=== PATIENT | female | born 1985 | race Caucasian/White ===

== ENCOUNTER → 2016-06-30 | Outpatient (REF) | payer OTHER ==
[~2016-06-30] MED LIST: ACET50TA GT; ACET50TA PO; ACET50TAOT PO; BENA25TA4 PO; DOCU10ELUD PO; IBUP80TA PO; KEFL500C7 PO; NORCOTAB PO; PRENTAB74 PO; SENN1TAB2 PO
== END ==
LOC: M LAB REF 13:14
PROVIDERS: ATTEND Advanced Practice Midwife
DX: Z34.81 Encounter for supervision of other normal pregnancy, first trimester (principal)

== ENCOUNTER → 2016-09-28 | Outpatient (CLI) | payer OTHER ==
[2016-09-28 13:54] LABS: MEAN CORPUSCULAR HEMOGLOBIN 31.4 pg (27.0-33.0); MEAN CORPUSCULAR HGB CONC 33.7 g/dl (32.0-36.5); MEAN CORPUSCULAR VOLUME 93.1 fl (80.0-96.0); RED CELL DISTRIBUTION WIDTH 13.5 % (11.5-14.5); WHITE BLOOD COUNT 8.2 K/mm3 (4.0-10.0)
== END ==
LOC: M LAB 11:51
PROVIDERS: ATTEND Advanced Practice Midwife
DX: Z34.82 Encounter for supervision of other normal pregnancy, second trimester (principal)

== ENCOUNTER → 2016-12-06 | Outpatient (REF) | payer OTHER | LOC: M LAB REF 12:53 | PROVIDERS: ATTEND Obstetrics & Gynecology | DX: Z34.83 Encounter for supervision of other normal pregnancy, third trimester (principal) ==

== ENCOUNTER 2016-12-29 17:21 | Inpatient (IN) | payer OTHER ==
[~2016-12-29] VITALS: Ht 167.6 cm; Wt 105.0 kg
[~2016-12-29 17:21] MED LIST changes: +KEFL500C17 PO; -KEFL500C7 PO
[2016-12-29] MEDS ORDERED: PRENTAB9 PO (17:31)
[2016-12-29] MEDS ORDERED: LR 500 ML IV SCH (18:00)
[2016-12-29 18:27] LABS: MEAN CORPUSCULAR HEMOGLOBIN 32.6 pg (27.0-33.0); MEAN CORPUSCULAR HGB CONC 35.7 g/dl (32.0-36.5); MEAN CORPUSCULAR VOLUME 91.1 fl (80.0-96.0); RED CELL DISTRIBUTION WIDTH 14.1 % (11.5-14.5); WHITE BLOOD COUNT 5.9 K/mm3 (4.0-10.0)
--- NOTE | 2016-12-29 18:51 | HPEPDOC ---
Obstetrical History & Physical General Date of Admission Dec 29, 2016 at 17:21 Primary Care Physician: DARREL JACK CNM History of Present Illness Patient is a 31-year-old female who is a 001 with an VARSHA of 01/05/2017 who is 39 weeks gestation based off of her first trimester ultrasound and consistent with her LMP. Patient initiated care in her first trimester at [email or web address]. Her care has been uncomplicated. She presents to labor and delivery today after being seen in the office. She was found to be in active labor was sent from the office to L&D. Patient reports contractions and active movement. She denies vaginal bleeding or leaking of fluid. Chief Complaint: Contractions, term, Active Labor Information Provided By: Patient Age: 31 : 2 Term: 1 Pre-term: 0 Livin Care Care: Good Care Number of Visits: 13 Dating Final EDC: Jan 05, 2017 Final EDC by: 1st trimester (US) LMP: Jun 09, 2016 EGA at Admission: 39 Antepartum Course Diagnos(e)s Preeclampsia: noted today in hospital by evidence of two elevated BP's in hospital, uric acid of 6.3, random protein/creatinine ratio of 0.45, and 2+ urine protein dip. Height (inches): 66 Pre- weight (lbs.): 196 Admission Weight (lbs.): 241 Change in Weight (lbs.): 245 Past Medical History Past Obstetrical History : Past Obstetrical History: Multigravida Type of Delivery: Spontaneous Vaginal Del. (August 2012 at 40 weeks gestation ) Sex of Infant: Female (weighing 8 lbs. 1 oz.) Complications: No PROTOHISTORIAN History: Abnormal Pap, Human papillomavirus(HPV) Past Medical History Medical History Varicella as a child. Surgical History: Appendectomy Family History Significant Family History: Cancer (father with lung cancer) Social History Social history Patient is . Her highest level of education is a bachelor's degree. Marital Status: Family situation: Spouse/partner home Psychosocial History: No pertinent psych hx * Smoker: non-smoker Alcohol: Denies Drugs: denies Abuse Violence Screening Have you been hit/kicked/slapp: No Have you been sexually assault: No Imunizations Tdap status: current Allergies Coded Allergies: No Known Drug Allergy (Verified Allergy, Unknown, 02/02/16) Medications Scheduled Multivitamins/ ( 27-0.8 mg) 1 Tab Tab, 1 TAB PO DAILY Physical Examination Physical Examination GENERAL: Alert and oriented times three. BREAST: . ABDOMEN: Gravid and non-tender to touch. FETUS: Is vertex (VTX) by sterile vaginal examination (SVE), fetus is vertex ( VTX) by Neftali. EFW via Neftali's is 9 lbs. HEART RATE: Regular rate and rhythm. LUNGS: Clear to auscultation (CTA). EXTREMITIES: 1+ pitting edema bilateral lower extremities. No clonus. Laboratory Data [facility] Laboratory Tests 2 12/29/16 18:13: 12/29/16 18:14: Urine Appearance HAZY, Urine Color YELLOW, Urine pH 6.0, Urine Specific [place] 1.016, Urine Protein 2+H, Urine Glucose (UA) NEGATIVE, Urine Ketones NEGATIVE, Urine Urobilinogen 0.2, Urine Bilirubin NEGATIVE, Urine Leukocyte Esterase NEGATIVE, Urine Blood NEGATIVE, Urine Nitrite NEGATIVE, Urine WBC (Auto) 3, Urine RBC (Auto) 2, Urine Hyaline Casts (Auto) 0, Urine Bacteria (Auto) NEGATIVE , Urine Squamous Epithelial Cells 7, Urine Mucus (Auto) SMALL, Urine Sperm (Auto ) 12/29/16 18:24: Serology Scanned Report Hepatitis B Testing CBC/BMP Laboratory Tests 12/29/16 18:13 Red Blood Count 3.38 L, Mean Corpuscular Volume 91.1, Mean Corpuscular Hemoglobin 32.6, Mean Corpuscular Hemoglobin Concent 35.7, Red Cell Distribution Width 14.1 Urine Culture: No Growth Pertinent Laboratoy Data Blood Type: O+ RBC Antibody Screen: Negative HIV: Negative Hepatitis B: Negative Hepatitis C: Negative Rapid Plasma Reagin: Nonreactive Rubella: Immune Chlamydia/Gonorrhea: Negative Group B Streptococcus: Negative Quad Screen Test: Declined Glucose Tolerance Test: 99 Anatomy Ultrasound Ultrasound Date: Dec 14, 2016 Normal Anatomy: Yes Placenta Previa: No Estimated Weight (grams): 3806 Vaginal Examination Dilation: 4 cm Effacement: Other (90%) Presentation: Cephalic presentation Position: Vertex (occiput) Assessment Heart Rate (FHR): 135 Variability: Moderate Accelerations: Positive Decelerations: None Tocometer Contractions: Yes Frequency: other (5 to 10 minutes) Assessment/Plan Assessment IUP at 39 weeks gestation. active labor at term Category I FHR tracing Preeclampsia Plan Admit to L&D saline lock and labs per protocol. clear liquid diet OOB ad janina anesthesia consult per patient's request Consider Pitocin augmentation or AROM. Anticipate cervical change and . DARREL JACK CNM Dec 29, 2016 18:51
[2016-12-29 18:53] LABS: ALT/SGPT 14 U/L (12-78); AST/SGOT 18 U/L (15-37); BILIRUBIN,TOTAL 0.4 MG/DL (0.2-1.0); CREATININE FOR GFR 0.51 MG/DL (0.55-1.02); GLOMERULAR FILTRATION RATE > 60.0 (>60); URIC ACID 6.3 MG/DL (2.6-6.0)
[2016-12-29] MEDS ORDERED: LR 1,000 ML IV SCH (19:00)
[2016-12-29] MEDS ORDERED: OXYTOCIN DRIP 30 UNITS in APPROPRIATE DILUENT 1 EA IV SCH (19:00)
[2016-12-29] MEDS ORDERED: FENTANYL 2MCG/ML ROPIVACAINE 0.2% IN 0.9% NACL 200ML IVBAG As Ordered ONE (21:21)
[2016-12-29] MEDS ORDERED: REFRIGERATOR IV KEYS XX PRN (22:15)
[2016-12-29] MEDS ORDERED: FENTANYL/ROPIVACAINE/NACL BAG 200 ML EPIDURAL SCH (22:15)
[2016-12-29] MEDS ORDERED: LACTATED RINGER'S 1000 ML IV PRN (22:15)
[2016-12-29] MEDS ORDERED: EPIDURAL COMMENT XX SCH (22:15)
[2016-12-29] MEDS ORDERED: ONDANSETRON 4MG/2ML VIAL (J2405) IV PRN (22:15)
[2016-12-29] MEDS ORDERED: diphenhydrAMINE INJ 50MG/ML VIAL (J1200) IV PRN (22:15)
[2016-12-29] MEDS ORDERED: NALOXONE INJ 0.4 MG/1 ML VIAL (J2310) IV PRN (22:15)
[2016-12-29] MEDS ORDERED: ePHEDrine SULFATE 25 MG/5 ML(5MG/ML) SYRINGE IV PRN (22:15)
[2016-12-29] MEDS ORDERED: EPIDURAL/PCA KEYS XX PRN (22:15)
[2016-12-30] VITALS (22 sets, daily range): BP systolic 114–146; BP diastolic 57–84
[2016-12-30] MEDS ORDERED: OXYTOCIN DRIP 30 UNITS in APPROPRIATE DILUENT 1 EA IV SCH (03:04)
[2016-12-30] MEDS ORDERED: DIBUCAINE 1% OINTMENT 30GM TOP PRN (03:15)
[2016-12-30] MEDS ORDERED: RHOGAM 300 MCG (1500 IU) INJ (J2790) IM SCH (03:15)
[2016-12-30] MEDS ORDERED: MEASLES,MUMPS,RUBELLA VACCINE INJ (MMR-II) (90707) SC SCH (03:15)
[2016-12-30] MEDS ORDERED: IBUPROFEN 800 MG TAB PO PRN (03:15)
[2016-12-30] MEDS ORDERED: ACETAMINOPHEN 500 MG TAB PO PRN (03:15)
[2016-12-30] MEDS ORDERED: DOCUSATE SODIUM 100 MG CAP PO PRN (03:15)
[2016-12-30] MEDS ORDERED: METHYLERGONOVINE MALEATE 0.2 MG TAB PO PRN (03:15)
--- NOTE | 2016-12-30 03:24 | DNPDOC ---
[facility] Delivery Note Delivery Note DATE OF DELIVERY: Dec 30, 2016 at 02:30. PREDELIVERY DIAGNOSIS: 39-1/7 weeks' gestation and labor. PROCEDURE: [Spontaneous vaginal delivery]. GERIATRIC ASSISTANT: Darrel Smith CNM, LEIDA ANESTHESIA: Epidural. ESTIMATED BLOOD LOSS: 450 mL. FINDINGS: 9 pound 1 ounce, 4098 grams, male infant, Score 8/9, nuchal cord times 1 tight. DELIVERY SUMMARY: Patient is a 31-year-old female who is now a at 39 weeks 1 day gestation. She was admitted to labor and delivery in active labor. It was found with patient's admission that her labs, BP's, uric acid, urine dip and protein/creatinine ratio that she was preeclamptic. Patient's labor was augmented with Pitocin. She received an epidural for pain management. She became fully dilated at 0205 where she was artificially ruptured to a moderate amount of clear/pink fluid. Patient pushed to a spontaneous vaginal delivery of a living male at 0230 in the YELENA position with restitution to ROT. A tight nuchal cord was noted. The anterior shoulder delivered with ease and the corpus immediately followed using the somersault maneuver. Transitional meconium noted with delivery. The baby was placed on the maternal abdomen active and crying with stimulation. The cord was clamped 2 and cut by the father of the baby after pulsation ceased. A three-vessel cord was noted. The placenta delivered spontaneously and intact at 0238. Uterine hemostasis was achieved by rapid infusion of IV Pitocin and uterine fundal massage. The perineum and vagina were assessed and noted to have a small second-degree perineal laceration that was approximated with a 3. [address]1. Hemostasis noted. EBL 450. 8/ 9. Weight 9 lbs. 1 oz. 4098 g. Mom will be breast-feeding baby. Baby's name is Renaldo. Mom and baby are both in stable condition. DARREL SMITH CNM Dec 30, 2016 03:24
[2016-12-30 06:54] LABS: MEAN CORPUSCULAR HEMOGLOBIN 32.1 pg (27.0-33.0); MEAN CORPUSCULAR HGB CONC 35.2 g/dl (32.0-36.5); MEAN CORPUSCULAR VOLUME 91.2 fl (80.0-96.0); RED CELL DISTRIBUTION WIDTH 14.1 % (11.5-14.5); WHITE BLOOD COUNT 12.2 K/mm3 (4.0-10.0)
[2016-12-30 07:16] LABS: ALT/SGPT 12 U/L (12-78); AST/SGOT 22 U/L (15-37); BILIRUBIN,TOTAL 0.4 MG/DL (0.2-1.0); CREATININE FOR GFR 0.58 MG/DL (0.55-1.02); GLOMERULAR FILTRATION RATE > 60.0 (>60); URIC ACID 6.1 MG/DL (2.6-6.0)
[2016-12-30] MEDS: PRENATAL VITAMINS CHEWABLE TABLET PO SCH (07:48)
[2016-12-31 02:29] VITALS: BP 114/64
[2016-12-31 05:40] VITALS: BP 124/66
[2016-12-31] MEDS: PRENATAL VITAMINS CHEWABLE TABLET PO SCH (09:18)
[2016-12-31 10:00] VITALS: BP 126/80
[2016-12-31] MEDS ORDERED: ACET50TA PO (13:07)
[2016-12-31] MEDS ORDERED: IBUP-1114 PO (13:07)
== END 2016-12-31 14:30 | disposition home or self-care (01) | DRG 775 ==
LOC: M LDI 17:21 → M OBS 12-30 05:07
PROVIDERS: ADMIT Obstetrics & Gynecology; ATTEND Advanced Practice Midwife
PROC: 10E0XZZ Delivery of Products of Conception, External Approach (ICD-10-PCS; principal; 2016-12-30)
PROC: 0HQ9XZZ Repair Perineum Skin, External Approach (ICD-10-PCS; 2016-12-30)
PROC: 10907ZC Drainage of Amniotic Fluid, Therapeutic from Products of Conception, Via Natural or Artificial Opening (ICD-10-PCS; 2016-12-30)
DX: O14.94 Unspecified pre-eclampsia, complicating childbirth (principal); Z3A.39 39 weeks gestation of pregnancy; O69.2XX0 Labor and delivery complicated by other cord entanglement, with compression, not applicable or unspecified; O70.0 First degree perineal laceration during delivery; Z37.0 Single live birth